=== PATIENT | male | born 1935 | race Asian ===

== ENCOUNTER 2017-06-06 12:28 | Emergency (ER) | payer MEDICARE ==
[~2017-06-06] VITALS: Ht 170.2 cm; Wt 68.6 kg
[~2017-06-06 12:28] MED LIST: FENO160T14 PO; GABA400C PO; GLUC-129 PO; LISI40TA13 PO; SAW160CA9 PO; SMV40T PO; Salmon Oil PO; TOPR25T PO; VIT1CAPS23 PO; WARF4TAB2 PO
[2017-06-06 12:38] VITALS: BP 111/68; RESP 16; O2SAT 99
== END 2017-06-06 13:52 | disposition left against medical advice (07) ==
LOC: SED 13:51
DX: Z53.21 Procedure and treatment not carried out due to patient leaving prior to being seen by health care provider (principal)

== ENCOUNTER 2017-07-16 06:21 | Emergency (ER) | payer MEDICARE ==
[~2017-07-16] VITALS: Ht 170.2 cm; Wt 69.1 kg
[2017-07-16 06:34] VITALS: BP 108/48; PULSE 72; RESP 16; O2SAT 98
--- NOTE | 2017-07-16 06:41 | ED.REPORT ---
HPI-Extremity Problem Lower Date of Service Jul 16, 2017 ED Provider: Triston Almeida Patient is an 82 year old male with a hx of CHF, HTN, pre-diabetes, gout, and afib on Coumadin who presents to the ED complaining of L foot pain and swelling onset 4-5 days ago. He describes the pain as burning. He reports his feet are swollen at baseline for the past 16 years but today his L foot is more swollen than normal. Associated symptoms include L knee pain. He denies a mechanism of injury but reports he stands for 10+ hours of the day. Pt denies numbness, weakness, tingling, fever, chills, or any other symptoms. Pt has taken Tylenol and Advil for his pain without relief. Nursing Notes Stated Complaint: PAIN IN LEFT FOOT Chief Complaint: Extremity Trauma Nursing Notes Reviewed: Yes Allergies: Coded Allergies: [place] Tree (Verified Allergy, Unknown, 07/16/17) Scheduled ([[place] Oil]) 1 TSP PO DAILY Colchicine (Colchicine) 0.6 Mg Capsule 0.6 MG PO ONCE Fenofibrate-Expunged Drug, Do Not Renew! (Fenofibrate-Expunged Drug, Do Not Renew!) 160 Mg Tablet 160 MG PO DAILY Gabapentin-Expunged Drug, Do Not Renew! (Neurontin-Expunged Drug, Do Not Renew! ) 400 Mg Capsule 600 MG PO TID Glucosamine/Msm/Chondroitin A (Condrolite Tablet) 1 Each Tablet 2 EACH PO DAILY Lisinopril-Expunged Drug, Do Not Renew! (Lisinopril-Expunged Drug, Do Not Renew! ) 40 Mg Tablet 40 MG PO HS Metoprolol Suc-Expunged Drug, Do Not Renew! (Metoprolol Suc-Expunged Drug, Do Not Renew!) 25 Mg Tber 25 MG PO DAILY Saw Imperial Xtr/Zinc Picolin (Saw Imperial 80 Mg Capsule) 1 Each Capsule 2 EACH PO DAILY Simvastatin-Expunged Drug, Choose New Med! (Simvastatin-Expunged Drug, Choose New Med!) 40 Mg Tablet 40 MG PO HS VIT C/VIT E ACETATE/LUTEIN/MIN-Expunged Drug, (OCUVITE LUTEIN-Expunged Drug, Do Not Renew!) 1 Each Capsule 1 EACH PO DAILY Scheduled PRN Indomethacin (Indomethacin) 25 Mg Capsule 25 MG PO TID PRN PRN For Pain Miscellaneous Medications Warfarin Sodium Inactive Drug Do Not Use (Coumadin Inactive Drug Do Not Use) 4 Mg Tablet 4 MG PO Take 1 tablet 6 days a week (Mon-Sat) and None on the other day General Time Seen by MD: 06:41 Chief Complaint Foot injury left Hx Obtained From: Patient Arrived By: Walk-in Onset Occurred: 4 days ago Symptom Duration: Since onset Location: : Foot left: Knee left Quality: Burning Severity: Current: Severe Severity: Maximum: Severe Pertinent Negative: Pt denies other symptoms Exacerbated by: Range of motion Immunizations: Unknown Recent Healthcare: Recent doctor visit Past Medical History Past Medical History CHF Afib on Coumadin HTN Asthma diverticulitis GERD BPH pre-Diabetes Depression anxiety Gout Chronic pedal edema Denies: Cancer, Stroke Denies: GI bleed, Kidney disease Past Surgical History carpal tunnel surg ingrown toenail surg Reports: Pacemaker insertion Smoking History Former Smoker Social History Alcohol Use: Denies alcohol use Ambulatory Status Crutches Review of Systems Review of Systems Note: -tingling Constitutional: Denies: Chills, Fever Musculoskeletal: Reports: Extremity pain, Extremity swelling, Joint pain Neurologic: Denies: Focal weakness, Numbness Complete sys rev & neg: except as marked. Physical Exam Initial Vital Signs Vital Signs (First) Date Time Temp Pulse Resp B/P Pulse Ox O2 Delivery O2 Flow Rate FiO2 07/16/17 06:34 36.6 72 16 108/48 98 Initial VS: Reviewed, Vital signs abnormal Head / Eyes: Atraumatic, Normocephalic Neck: Full range of motion Respiratory: Breath sounds normal, Clear to auscultation, No respiratory distress Cardiovascular: Regular rate & rhythm, Intact distal pulses Skin: Warm, Dry Neurologic: Alert, Oriented, Nonfocal Lower Extremity / Pelvis / MS: No deformity, Neurologic intact, Vascular intact No warmth or deformity to L knee No calf swelling Ankle / Foot: No deformity warmth and erythema to the dorsum of the L foot General/Constitutional: Awake, Alert, No acute distress Re-Eval/Medical Decision Med Decision/Clinical Course Gentleman has no symptoms of infection but he does have some mild warmth and redness to the dorsum of the left foot which is chronically edematous. He also has chronic gout. He may also have simply peripheral neuropathy. I think empiric therapy for gout exacerbation is the most appropriate approach at this time. Close outpatient follow-up is recommended. Re-Evaluation/Progress : Time of Eval: 06:50 Re-Evaluation/Progress Note: Discussed plan for discharge with home medications and f/u. Patient understands and agrees with plan. All questions addressed at this time. Counseled Regarding: Diagnosis, Lab results, Need for follow-up, When/why to return to ED Discharge & Departure Impression: Primary Impression: Foot pain Laterality: left Qualified Code: M79.672 - Pain in left foot Disposition: Home Discharge Condition All VS Reviewed: Yes Condition: Stable Patient Instructions: Gout (ED) Additional Instructions: Thank you for entrusting us with your care. Your examination is reassuring. We did not identify a dangerous cause for your symptoms. It is not clear to me what the cause is for your pain. It may be an infection though I think this is less likely. Gout is certainly possible and we are treating you for this. It is also possible that you have peripheral neuropathy , talk to Dr. Ko about this. Take indomethacin twice a day as needed for pain. You received one dose of colchicine in the emergency department. Take your second dose later today. Call your primary doctor this morning to schedule a follow up appointment for early next week. Return to the emergency department if you experience fever, chills, increasing pain or swelling, or any other new or concerning symptoms. Referrals: Mani Pitt MD (PCP) Lionel Attestation Portions of this note were transcribed by Nayeli Reynolds. I, Dr. Almeida personally performed the history, physical exam and medical decision-making; I reviewed and confirmed the accuracy of the information in the transcribed note. Signed by: Lionel Whiting, 07/16/17 copies to: Mani Pitt MD, Kirk H MD Jul 16, 2017 06:41 NAYELI REYNOLDS Jul 16, 2017 06:48
[2017-07-16] MEDS ORDERED: Indomethacin 25 mg Capsule PO ONE (07:05)
[2017-07-16] MEDS ORDERED: INDO25CA PO (07:09)
[2017-07-16] MEDS ORDERED: COLC0.6C3 PO (07:09)
== END 2017-07-16 07:30 | disposition home or self-care (01) ==
LOC: SED 06:21
DX: M79.672 Pain in left foot (principal); I50.9 Heart failure, unspecified; I10 Essential (primary) hypertension; I48.91 Unspecified atrial fibrillation; M10.9 Gout, unspecified; J45.909 Unspecified asthma, uncomplicated; K21.9 Gastro-esophageal reflux disease without esophagitis; Z87.891 Personal history of nicotine dependence; Z87.19 Personal history of other diseases of the digestive system; Z79.01 Long term (current) use of anticoagulants